=== PATIENT | male | born 1995 | race Caucasian/White ===

== ENCOUNTER 2019-02-20 13:17 | Inpatient (IN) | payer BC ==
[2019-02-20 14:09] LABS: Urine Appearance Clear; Urine Bilirubin Negative (Negative); Urine Blood Negative (Negative); Urine Color Yellow; Urine Glucose Negative (Negative); Urine Ketones Negative (Negative); Urine Nitrite Negative (Negative); Urine Protein Negative (Negative); Urine Specific Gravity 1.012 (1.010-1.030); Urine Urobilinogen Negative (Negative)
[2019-02-20] MEDS ORDERED: Nicotine* 4MG (FRUIT FLAVOR) GUM PO ONE (14:13)
[2019-02-20 14:27] LABS: ABS Basophils 0.1 10^3/ul (0-0.2); ABS Eosinophils 0.1 10^3/ul (0-0.6); ABS Lymphocytes 2.2 10^3/ul (1.0-4.8); ABS Monocytes 0.7 10^3/ul (0-0.8); ABS Neutrophils 5.6 10^3/ul (1.5-7.7); Eosinophil % 1.3 %; Hematocrit 41 % (42-52); Hemoglobin 14.4 g/dL (14.0-18.0); Lymphocyte % 25.3 %; Mean Corpuscular HGB Conc 35 g/dL (31-36); Mean Corpuscular Hemoglobin 31 pg (27-31); Mean Corpuscular Volume 91 fL (80-94); Nucleated Red Blood Cells % 0.1; Platelet Count 444 10^3/uL (150-450); Red Blood Count 4.58 10^6 /uL (4.18-5.48); Red Cell Distribution Width 13 % (10.5-15); White Blood Count 8.7 10^3/uL (3.5-10.8)
[2019-02-20 15:11] LABS: Urine Benzodiazepine Screen None Detected (None Detect); Urine Opiates Screen None Detected (None Detect)
[2019-02-20 15:15] LABS: TSH (Thyroid Stimulating Horm) 0.79 mcIU/mL (0.34-5.60)
[2019-02-20 15:26] LABS: Alcohol 38 mg/dL (<10); Salicylate < 2.50 mg/dL (<30)
[2019-02-20 15:32] LABS: ALT 23 U/L (7-52); AST 24 U/L (13-39); Albumin 4.8 g/dL (3.2-5.2); Albumin/Globulin Ratio 1.5 (1-3); Alkaline Phosphatase 77 U/L (34-104); Anion Gap 10 mmol/L (2-11); BUN/Creatinine Ratio 12.4 (8-20); Blood Urea Nitrogen 11 mg/dL (6-24); CO2 Carbon Dioxide 24 mmol/L (22-32); Calcium 9.6 mg/dL (8.6-10.3); Chloride 106 mmol/L (101-111); EGFR African American 130.6 (>60); EGFR Non-African American 107.9 (>60); Globulin 3.1 g/dL (2-4); Glucose 94 mg/dL (70-100); Potassium 4.1 mmol/L (3.5-5.0); Sodium 140 mmol/L (135-145); Total Protein 7.9 g/dL (6.4-8.9)
[2019-02-20 16:27] LABS: Acetaminophen < 15 mcg/mL
--- NOTE | 2019-02-20 16:36 | ED ---
Psychiatric Complaint - HPI Summary HPI Summary: This patient is a 23 year old M brought in by police to [facility] with a chief complaint per police of suicidal ideations. The police stated that at 0700 the patient had attached a gun to a chair and sent a picture of it to his girlfriend. The patient reports no suicidal or homicidal ideations, anxiety, or depression. The patient has symptoms of a headache. Per the police the patient has been uncooperative. The patient has a Hx of violence towards others but no other notable PMHx. The patients symptoms are alleviated and aggravated by nothing. The police say that the mom is cooperative but the dad is not. - History Of Current Complaint Chief Complaint: EDMentalHealth Time Seen by Provider: 02/20/19 13:38 Hx Obtained From: Patient, Other: - Police Onset/Duration: Sudden Onset - 0700 Timing: Hours - sine 0700 02/20/19 Aggravating Factor(s): Nothing Alleviating Factor(s): Nothing Has Suicidal: Denies: Thoughts Has Homicidal: Denies: Thoughts - Allergies/Home Medications Allergies/Adverse Reactions: Allergies Allergy/AdvReac Type Severity Reaction Status Date / Time bee venom protein (honey bee) Allergy Unknown Verified 02/20/19 13:25 Reaction Details Penicillins Allergy Unknown Verified 02/20/19 13:25 Reaction Details PMH/Surg Hx/FS Hx/Imm Hx Previously Healthy: No Endocrine/Hematology History: Denies: Hx Diabetes, Hx Thyroid Disease Cardiovascular History: Denies: Hx Congestive Heart Failure, Hx Deep Vein Thrombosis, Hx Hypertension , Hx Myocardial Infarction, Hx Pacemaker/ICD Respiratory History: Denies: Hx Asthma, Hx Chronic Obstructive Pulmonary Disease (COPD), Hx Lung Cancer, Hx Pneumonia, Hx Pulmonary Embolism GI History: Denies: Hx Gall Bladder Disease, Hx Gastrointestinal Bleed, Hx Ulcer, Hx Urosepsis History: Denies: Hx Kidney Stones, Hx Renal Disease Neurological History: Denies: Hx Dementia, Hx Migraine, Hx Seizures, Hx Transient Ischemic Attacks (TIA) Psychiatric History: Reports: Hx of Violent Episodes Against Others Denies: Hx Anxiety, Hx Eating Disorder, Hx Depression, Hx Schizophrenia, Hx Bipolar Disorder - Surgical History Surgery Procedure, Year, and Place: tonsills adenoids removed Infectious Disease History: No Infectious Disease History: Denies: History Other Infectious Disease, Traveled Outside the [place] in Last 30 Days - Family History Known Family History: Negative: Cardiac Disease, Hypertension, Diabetes - Social History Alcohol Use: Weekly Hx Substance Use: No Substance Use Type: Reports: None Hx Tobacco Use: Yes Smoking Status (MU): Heavy Every Day Tobacco Smoker Type: Cigarettes Amount Used/How Often: tin or 2 a day Review of Systems Positive: Headache Negative: Anxious, Depressed All Other Systems Reviewed And Are Negative: Yes Physical Exam - Summary Physical Exam Summary: Constitutional: Well-developed, Well-nourished, Alert. (-) Distressed Skin: Warm, Dry, hands are erythematous, track minaya evident on hands. HENT: Normocephalic; Atraumatic Eyes: Conjunctiva normal Neck: Musculoskeletal ROM normal neck. (-) JVD, (-) Stridor, (-) Tracheal deviation Cardio: Rhythm regular, rate normal, Heart sounds normal; Intact distal pulses; The pedal pulses are 2+ and symmetric. Radial pulses are 2+ and symmetric. (-) Murmur Pulmonary/Chest wall: Effort normal. (-) Respiratory distress, (-) Wheezes, (-) Rales Abd: Soft, (-) tenderness, (-) Distension, (-) Guarding, (-) Rebound Musculoskeletal: (-) Edema Lymph: (-) Cervical adenopathy Neuro: Alert, Oriented x3 Psych: Flat affect Triage Information Reviewed: Yes Vital Signs On Initial Exam: Initial Vitals Temp Pulse Resp BP Pulse Ox 99.3 F 111 16 127/88 97 02/20/19 13:19 02/20/19 13:19 02/20/19 13:19 02/20/19 13:19 02/20/19 13:19 Vital Signs Reviewed: Yes Diagnostics - Vital Signs Vital Signs Temp Pulse Resp BP Pulse Ox 02/20/19 15:48 99.7 F 97 18 133/51 99 02/20/19 13:19 99.3 F 111 16 127/88 97 - Laboratory Lab Results: Lab Results 02/20/19 02/20/19 02/20/19 Range/Units 13:35 13:35 14:17 WBC 8.7 (3.5-10.8) 10^3/uL RBC 4.58 (4.18-5.48) 10^6 /uL Hgb 14.4 (14.0-18.0) g/dL Hct 41 L (42-52) % MCV 91 (80-94) fL MCH 31 (27-31) pg MCHC 35 (31-36) g/dL RDW 13 (10.5-15) % Plt Count 444 (150-450) 10^3/uL MPV 6.0 L (7.4-10.4) fL Neut % (Auto) 64.9 % Lymph % (Auto) 25.3 % Furnas % (Auto) 7.8 % Eos % (Auto) 1.3 % Baso % (Auto) 0.7 % Absolute Neuts (auto) 5.6 (1.5-7.7) 10^3/ul Absolute Lymphs (auto) 2.2 (1.0-4.8) 10^3/ul Absolute Monos (auto) 0.7 (0-0.8) 10^3/ul Absolute Eos (auto) 0.1 (0-0.6) 10^3/ul Absolute Basos (auto) 0.1 (0-0.2) 10^3/ul Absolute Nucleated RBC 0.0 10^3/ul Nucleated RBC % 0.1 Sodium (135-145) mmol/L Potassium (3.5-5.0) mmol/L Chloride (101-111) mmol/L Carbon Dioxide (22-32) mmol/L Anion Gap (2-11) mmol/L BUN (6-24) mg/dL Creatinine (0.67-1.17) mg/dL Est GFR ( Amer) (>60) Est GFR (Non-Af Amer) (>60) BUN/Creatinine Ratio (8-20) Glucose (70-100) mg/dL Calcium (8.6-10.3) mg/dL Total Bilirubin (0.2-1.0) mg/dL AST (13-39) U/L ALT (7-52) U/L Alkaline Phosphatase (34-104) U/L Total Protein (6.4-8.9) g/dL Albumin (3.2-5.2) g/dL Globulin (2-4) g/dL Albumin/Globulin Ratio (1-3) TSH (0.34-5.60) mcIU/mL Urine Color Yellow Urine Appearance Clear Urine pH 5.0 (5-9) Ur Specific Wellington 1.012 (1.010-1.030) Urine Protein Negative (Negative) Urine Ketones Negative (Negative) Urine Blood Negative (Negative) Urine Nitrate Negative (Negative) Urine Bilirubin Negative (Negative) Urine Urobilinogen Negative (Negative) Ur Leukocyte Esterase Negative (Negative) Urine Glucose Negative (Negative) Salicylates (<30) mg/dL Urine Opiates Screen None detected (None Detect) Acetaminophen mcg/mL Ur Barbiturates Screen None detected (None Detect) Ur Phencyclidine Scrn None detected (None Detect) Ur Amphetamines Screen None detected (None Detect) U Benzodiazepines Scrn None detected (None Detect) Urine Cocaine Screen Presumptive positive A (None Detect) U Cannabinoids Screen None detected (None Detect) Serum Alcohol (<10) mg/dL 02/20/19 Range/Units 14:17 WBC (3.5-10.8) 10^3/uL RBC (4.18-5.48) 10^6 /uL Hgb (14.0-18.0) g/dL Hct (42-52) % MCV (80-94) fL MCH (27-31) pg MCHC (31-36) g/dL RDW (10.5-15) % Plt Count (150-450) 10^3/uL MPV (7.4-10.4) fL Neut % (Auto) % Lymph % (Auto) % Furnas % (Auto) % Eos % (Auto) % Baso % (Auto) % Absolute Neuts (auto) (1.5-7.7) 10^3/ul Absolute Lymphs (auto) (1.0-4.8) 10^3/ul Absolute Monos (auto) (0-0.8) 10^3/ul Absolute Eos (auto) (0-0.6) 10^3/ul Absolute Basos (auto) (0-0.2) 10^3/ul Absolute Nucleated RBC 10^3/ul Nucleated RBC % Sodium 140 (135-145) mmol/L Potassium 4.1 (3.5-5.0) mmol/L Chloride 106 (101-111) mmol/L Carbon Dioxide 24 (22-32) mmol/L Anion Gap 10 (2-11) mmol/L BUN 11 (6-24) mg/dL Creatinine 0.89 (0.67-1.17) mg/dL Est GFR ( Amer) 130.6 (>60) Est GFR (Non-Af Amer) 107.9 (>60) BUN/Creatinine Ratio 12.4 (8-20) Glucose 94 (70-100) mg/dL Calcium 9.6 (8.6-10.3) mg/dL Total Bilirubin 0.30 (0.2-1.0) mg/dL AST 24 (13-39) U/L ALT 23 (7-52) U/L Alkaline Phosphatase 77 (34-104) U/L Total Protein 7.9 (6.4-8.9) g/dL Albumin 4.8 (3.2-5.2) g/dL Globulin 3.1 (2-4) g/dL Albumin/Globulin Ratio 1.5 (1-3) TSH 0.79 (0.34-5.60) mcIU/mL Urine Color Urine Appearance Urine pH (5-9) Ur Specific Wellington (1.010-1.030) Urine Protein (Negative) Urine Ketones (Negative) Urine Blood (Negative) Urine Nitrate (Negative) Urine Bilirubin (Negative) Urine Urobilinogen (Negative) Ur Leukocyte Esterase (Negative) Urine Glucose (Negative) Salicylates < 2.50 (<30) mg/dL Urine Opiates Screen (None Detect) Acetaminophen < 15 mcg/mL Ur Barbiturates Screen (None Detect) Ur Phencyclidine Scrn (None Detect) Ur Amphetamines Screen (None Detect) U Benzodiazepines Scrn (None Detect) Urine Cocaine Screen (None Detect) U Cannabinoids Screen (None Detect) Serum Alcohol 38 H (<10) mg/dL Result Diagrams: 02/20/19 14:17 02/20/19 14:17 Lab Statement: Any lab studies that have been ordered have been reviewed, and results considered in the medical decision making process. - EKG 1439 Cardiac Rate: NL - 94 BPM EKG Rhythm: Sinus Rhythm - Normal sinus rhythm at 74 bpm, normal FL, normal QRS , normal QTc, normal axis, Elevated ST in leads V1, V2, V3, normal T-waves, LVH , nonspecific EKG. Summary of EKG Findings: Normal sinus rhythm at 94 bpm, normal FL, normal QRS, normal QTc, normal axis, elevated ST on V1-V3, normal T-waves, nonspecific EKG, LVH. Course/Dx - Course Course Of Treatment: This patient is a 23 year old M brought in by police to [facility] with a chief complaint per police of suicidal ideations. The patient had abnormal values in Hct at 41, MPV at 6.0, and was positive in a urine cocaine screen, and had a serum alcohol level of 38. This patient also recieved an EKG showing normal sinus rhythm at 94 bpm, normal FL, normal QRS, normal QTc, normal axis, elevated ST on V1-V3, normal T-waves, nonspecific EKG, LVH. Patient was cleared for [facility]HE at 1634. Patient was admitted per Dr. Mclaughlin, psychiatrist at 1806. Pateint was diagnosed as unspecified depression. - Differential Dx/Clinical Impression Differential Diagnosis/HQI/PQRI: Positive: Depression Provider Diagnosis: Depressive disorder - Physician Notifications Discussed Care Of Patient With: Jo Mclaughlin Time Discussed With Above Provider: 18:06 Instructed by Provider To: Admit As Inpatient Discharge - Sign-Out/Discharge Documenting (check all that apply): Patient Departure - admit Patient Received Moderate/Deep Sedation with Procedure: No - Discharge Plan Condition: Stable Disposition: ADMITTED TO [facility] Referrals: Edi Wellington DO [Primary Care Provider] - - Billing Disposition and Condition Condition: STABLE Disposition: Admitted to [facility] - Attestation Statements Document Initiated by Maurice: Yes Documenting Scribe: Abdias León Provider For Whom Maurice is Documenting (Include Credential): Ketty Osorio MD Scribe Attestation: Abdias Suarez, scribed for Ketty Herrera MD on 02/20/19 at 1903. Scribe Documentation Reviewed: Yes Provider Attestation: The documentation as recorded by the Abdias barahona accurately reflects the service I personally performed and the decisions made by me, Ketty Herrera MD Status of Scribe Document: Viewed
[2019-02-20] MEDS ORDERED: Acetaminophen TAB* 325 MG PO PRN (21:13)
[2019-02-20] MEDS ORDERED: Al Hydrox/Mg Hydrox/Simet LIQ* 30 ML UDC PO PRN (21:13)
[2019-02-20] MEDS: Nicotine* 2MG (FRUIT FLAVOR) GUM PO PRN (22:17)
[2019-02-21] MEDS: Nicotine* 2MG (FRUIT FLAVOR) GUM PO PRN ×6 (07:29→22:10)
[2019-02-21] MEDS: Nicotine PATCH 21 MG/24 HR* PATCH TRANSDERM SCH (07:29)
[2019-02-21 08:28] LABS: HDL Cholesterol 65.8 mg/dL
[2019-02-21] MEDS: Vitamin THERAPEUTIC TAB PO SCH (09:48)
--- NOTE | 2019-02-21 10:51 | HP ---
H&P (Free Text) History and Physical: Justification for admission: Immediate Safety. CC " I woke up" The patient was brought to [facility] by police after a incident where his girlfriend Yin called the police for concern of suicide. Per police commissioner he got into a argument with his girlfriend yesterday morning and did not call her back. He began drinking and sending her messages about suicide. She called the police and they went to his residence for a welfare check and discovered he shot holes in his barn and tied a rope to a chair and his rifle. They did not have concerns for homicidal ideation or intent. He has access to firearms. He denied stockpiles of medications. According to the patient " nothing happened, I woke up and the police took me to the hospital." The patient denied homicidal ideation intent or plan. The patient denied auditory and/ or visual hallucinations. Collateral from his father included that he was hanging a gun in the barn planing to shoot himself and sent a picture and message about suicide to his girlfriend. His father remarked "he will try and talk himself out of everything". His father stated this is the first time he has mentioned suicide. His father has locked all guns in a safe and out of his access. MDD Denied feeling depressed. Denied having diminished interests which were found to be enjoyable in the past. Denied having crying spells , feeling empty inside , feelings of hopelessness , and worthlessness. Denied unintentional weight loss and appetite. Denied interruption of sleep , or feeling tired throughout the day. Denied loss of energy or lack of motivation to complete tasks. Denied overwhelming feelings of guilt or decreased concentration. Denied recurrent thoughts of . Denied thoughts that they would be better off . Anxiety Denied having symptoms of anxiety such as having times where heart feels that it is beating out of chest , sweaty palms, or shallow breathing. Denied having uncomfortable or intrusive thoughts. Denied feeling restless, high strung, or worrying too much most of the time. Bipolar Denied symptoms of margo such as having many ideas at once. Denied increased talkativeness where no one can interrupt. Denied feeling irritable most of the time while having an persistent abundance of energy most of the day without the use of energy drinks, stimulants, or recreational drug use. Denied an increase in intensity in goal directed activities. Denied having the decreased need to sleep for days , having prolonged elevated heighted mood , or feeling on top of the world. Denied impulsive risky sexual encounters. Denied spending money recklessly , going on spending sprees wiping out savings. Denied impulsively traveling out of town or country, having super bacon, and unrealistic wealth or fame. Psychosis Does not endorse hearing things that other people do not hear or seeing things other people do not see. Denied feeling that TV is making references. Denied feeling that people are spying , following , or reading their thoughts. Phobias: Patient denied having excessive fear of a particular thing or situation. Eating disorders: Patient denied having excessive eating habits or feelings of guilt after eating. Denied repeated episodes of self induced vomiting after eating. PTSD Denied flashbacks, nightmares and avoidance of a prior traumatic event. PAST PSYCHIATRIC HISTORY: Prior Diagnosis : Denied having prior psychiatric history. History of past Psychiatric Hospitalizations: No prior psychiatric admission. History of past suicide/homicide attempts : Denied past suicide attempts. Denied past homicidal incidents. Outpatient follow-up: None Medications: No Past trials of medications Guardianship: None. FAMILY HISTORY: - Suicide: Denied family history of suicide. - Mental illness: Denied a history of mental health in immediate family members. - Substance abuse: Father alcohol abuse SUBSTANCE ABUSE HISTORY: Denied recreational use of prescription pills. - EtOH: Reported drinking a couple of beers, once or twice a week. Denied blackout seizures or DTs, 2 DWIs. - Tobacco: Smokes 1/4 ppd and uses chewing tobacco daily. - Cannabis: Denied using recently or in the past. - Heroin: Denied using recently or in the past. - Cocaine: Denied using recently or in the past however UDS shows + result - Substance abuse treatment: Currently in court mandated alcohol program SOCIAL HISTORY: - Currently lives in [place], [place] with his father. 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 He has never been , his girlfriend is currently with his only child. - Legal history: On probation for 2 DWIs - service history: Denied PAST MEDICAL HISTORY: Denied heart disease, diabetes, cancer and/ or other medical conditions. - Allergies: Penicillin ,Bee stings. Physical Exam: Please see ED note Mental Status Exam on Admission APPEARANCE : 23 year old male who appears stated age. Patient appears disheveled BEHAVIOR: Cooperative , calm EYE CONTACT: Fair PSYCHOMOTOR ACTIVITY: No psychomotor agitation or retardation. MOVEMENTS: No abnormal movements observed. SPEECH : Normal rate, rhythm, volume and tone. MOOD : " Fine" AFFECT : Type anxious, Range is restricted shallow depth Mood Incongruent THOUGHT PROCESS: Formulated and organized in a logical, linear goal directed manner. No flight of ideas, neologism (made up words) , perseveration , tangential , loose associations , or circumstantiality. THOUGHT CONTENT: no delusions, obsessions, phobias or preoccupations. PERCEPTION: No current auditory or visual hallucinations. Doesnt appear to be responding to internal cues. No evidence of depersonalization , de-realization, or illusions SUICIDALITY Recent suicidal ideation, with plan per history. HOMICIDALITY Denied homicidal ideation, intent or plan. Insight/judgment: Poor insight and judgment ORIENTATION: Oriented to self, location, and time. Diagnosis on Admission: Unspecified depressive Disorder, alcohol use disorder. Assessment: 23 year old male with no prior psychiatric history came to the hospital by police after concerns for suicide. Plan #Admit to [facility], Q15 minute observation. Start regular diet. Encourage participation in activities on the milieu. #Patient evaluated in ED and was determined by the emergency room Physician to be medically fit for admission to the [facility]. # Justification for Admission: For immediate safety per outlined in the [facility] Mental Hygiene Code. # The patient requires inpatient admission at this time to assure safety, receive treatment and work toward stabilization. # Labs ordered: CBC, CMP, UDS, TSH, HBA1c, TSH, Toxicology screen, Urine analysis, and lipid profile. # Signed release for his girlfriend and father signed. Girlfriend Yin [phone] # Collaboration with Social Work to assist with disposition and after care. # [place] [facility] Substance Abuse resources offered. Tobacco use disorder: nicotine supplement offered and put in place. #Goals before discharge include: Improve self awareness
[2019-02-21] MEDS: Nicotine Patch Removal NOTE PATCH OFF SCH (21:31)
[2019-02-22] MEDS: Nicotine* 2MG (FRUIT FLAVOR) GUM PO PRN ×6 (07:29→21:45)
[2019-02-22] MEDS: Nicotine PATCH 21 MG/24 HR* PATCH TRANSDERM SCH (07:30)
[2019-02-22] MEDS: Vitamin THERAPEUTIC TAB PO SCH (07:31)
--- NOTE | 2019-02-22 11:04 | PN ---
Subjective - Subjective Date of Service: 02/22/19 Service Type: 69530 Hosp care 35 min high complexity Subjective: Nursing Report: Patient was visible on unit, no chemical restraints or PRNs. Slept overnight without incident. Attended some of the groups CC: "Fine Patient was seen and evaluated in the common room. The patient reported he feels safe on the unit and is interacting with peers. He acknowledged that he set up his rifle to kill himself and then decided not to and went to bed and woke up to the police at the door. He talked about how alcohol influences him to do things he wouldn't do if he wasnt using alcohol. He spoke of the stress of having a daughter on the way with bills. His mother called the unit overnight. He does not wish to not provide a release of information for staff to talk with her. He rather staff speak to his father and girlfriend. He reported having an adequate appetite and sleep. Per nursing no behavioral issues or overnight events reported. He denied being depressed or anxious and refused to take medications. His father was called and confirmed that Gerri firearms were taken by the real estate closer and his own are in a locked safe. He said that he never noticed signs of depression, anxiety or mental illness in the past. He did say that he is concerned about his addiction to alcohol. Objective - General Observations Appearance: Unkempt Appears Stated Age: Yes Stature: Thin Posture: WNL Eye Contact: Average Behavior/Activity: WNL - Interaction Observations Attitude Towards Examiner: Evasive Stated Mood: Anxious Affect: Restricted Speech Pattern/Tone: Clear Thought Process: Coherent Perception: WNL Thought Content: WNL Hallucination Type: None Delusion Type: None - Cognitive Function Orientation: A&O x 4 Level of Consciousness: Awake - Group Participation Participates in Group Activities: No Assessment - Assessment Merits Inpatient Hospitalization: For Immediate Safety Clinical Impression: 23 year old male brought in by police after suicidal attempt Plan - Plan Treatment Plan: Name: GERRI IGLESIAS Birthdate: 1995 [id number] # Q30 minute observation. # The patient requires inpatient admission at this time to assure safety, receive treatment and work toward stabilization. # Signed release for his girlfriend and father signed. Girlfriend Yin Fathers # [phone]. # Collaboration with Social Work to assist with disposition and after care. # [place] [facility] # Alcohol cessation treatments offered. Substance Abuse resources offered. Tobacco use disorder: nicotine supplement offered and put in place. #Goals before discharge include: Improve self awareness Continued Medication Management: Continue Outpt Medication Medications: Current Medications Acetaminophen (Tylenol Tab*) 650 mg PO Q4H PRN PRN Reason: PAIN or TEMP > 101 F Al Hydrox/Mg Hydrox/Simethicone (Maalox Plus*) 30 ml PO Q4H PRN PRN Reason: INDIGESTION Multivitamins (Theragran Tab*) 1 tab PO DAILY [facility] Last Admin: 02/22/19 07:31 Dose: Not Given Nicotine (Nicotine Patch 21 Mg/24 Hr*) 1 patch TRANSDERM QAM [facility] Last Admin: 02/22/19 07:30 Dose: Not Given Nicotine Polacrilex (Nicotine Gum*) 2 mg PO Q2H PRN PRN Reason: CRAVINGS Last Admin: 02/22/19 10:03 Dose: 2 mg Pharmacy Profile Note (Nicotine Patch Removal Note*) 1 note PATCH OFF 2100 [facility] Last Admin: 02/21/19 21:31 Dose: Not Given - Discharge Plan Discharge Plan: Inpatient Hospitalization
--- NOTE | 2019-02-22 11:23 | PN ---
BSU: Group Therapy Note - Service Type Service Type: 73483 Group Psychotherapy - Cognitive Behavioral Group Therapy ( CBT):Patient attended CBT programming this morning and presented with flat affect that did not vary with discussion. Although responsive to direct prompts to respond to questions, patient did not engage in spontaneous conversation.
[2019-02-22] MEDS: Nicotine Patch Removal NOTE PATCH OFF SCH (21:43)
[2019-02-23] MEDS: Nicotine* 2MG (FRUIT FLAVOR) GUM PO PRN ×4 (07:42→20:36)
[2019-02-23 08:07] VITALS: BP 132/75
[2019-02-23] MEDS: Nicotine PATCH 21 MG/24 HR* PATCH TRANSDERM SCH ×2 (09:20→09:21)
[2019-02-23] MEDS: Vitamin THERAPEUTIC TAB PO SCH (09:20)
[2019-02-23] MEDS: Nicotine Patch Removal NOTE PATCH OFF SCH (21:52)
[2019-02-24] MEDS: Vitamin THERAPEUTIC TAB PO SCH (07:51)
[2019-02-24] MEDS: Nicotine PATCH 21 MG/24 HR* PATCH TRANSDERM SCH (08:53)
[2019-02-24] MEDS: Nicotine* 2MG (FRUIT FLAVOR) GUM PO PRN ×5 (08:54→19:33)
--- NOTE | 2019-02-24 15:29 | PN ---
Subjective - Subjective Date of Service: 02/24/19 Service Type: 25172 Hosp care 15 min low complexity Subjective: Gerri reports concern about how to pay bills, having lost his job while admitted here. He wants discharge. He declines any med change and states he has no need for a doctor's order. He denies thoughts to harm himself or others , He reports feeling alcohol played a role in his near suicide attempt. He understands the troopers took the rifle. He has no physical complaints. His mood is "bored." He denies AH/VH/PI/SI/HI. Objective - General Observations Appearance: Neat Appears Stated Age: Yes Stature: Thin Posture: WNL Eye Contact: Average Behavior/Activity: WNL - Interaction Observations Attitude Towards Examiner: Cooperative Stated Mood: Dysphoric - - "bored" Affect: Full Speech Pattern/Tone: Clear, Appropriate, Normal Volume Thought Process: Coherent Perception: WNL Thought Content: WNL Hallucination Type: None Delusion Type: None - Cognitive Function Orientation: A&O x 4 Level of Consciousness: Awake, Alert, Appropriate Cognition: WNL Estimated Intelligence: Normal Ability to Make Reasonable Decisions: Mildly Impaired - Medication Compliance Cooperative with Inpatient Medication Regimen: Yes - Group Participation Participates in Group Activities: No Assessment - Assessment Merits Inpatient Hospitalization: For Immediate Safety, For Stabilization, For Discharge Planning Clinical Impression: 23 year old male brought in by police after suicidal attempt Plan - Plan Treatment Plan: Name: GERRI IGLESIAS Birthdate: 1995 [id number] # Q30 minute observation. # The patient requires inpatient admission at this time to assure safety, receive treatment and work toward stabilization. # Signed release for his girlfriend and father signed. Girlfriend Yin Fathers # [phone]. # Collaboration with Social Work to assist with disposition and after care. # [place] [facility] # Alcohol cessation treatments offered. Substance Abuse resources offered. Tobacco use disorder: nicotine supplement offered and put in place. #Goals before discharge include: Improve self awareness Medications: Current Medications Acetaminophen (Tylenol Tab*) 650 mg PO Q4H PRN PRN Reason: PAIN or TEMP > 101 F Al Hydrox/Mg Hydrox/Simethicone (Maalox Plus*) 30 ml PO Q4H PRN PRN Reason: INDIGESTION Multivitamins (Theragran Tab*) 1 tab PO DAILY [facility] Last Admin: 02/24/19 07:51 Dose: Not Given Nicotine (Nicotine Patch 21 Mg/24 Hr*) 1 patch TRANSDERM QAM [facility] Last Admin: 02/24/19 08:53 Dose: 1 patch Nicotine Polacrilex (Nicotine Gum*) 2 mg PO Q2H PRN PRN Reason: CRAVINGS Last Admin: 02/24/19 14:00 Dose: 2 mg Pharmacy Profile Note (Nicotine Patch Removal Note*) 1 note PATCH OFF 2100 [facility] Last Admin: 02/23/19 21:52 Dose: 1 note - Discharge Plan Discharge Plan: Outpatient Follow Up
[2019-02-24] MEDS: Nicotine Patch Removal NOTE PATCH OFF SCH (22:21)
[2019-02-25] MEDS: Nicotine* 2MG (FRUIT FLAVOR) GUM PO PRN ×2 (07:28→09:32)
--- NOTE | 2019-02-25 08:56 | DS ---
Subjective - Subjective Service Types: [address] [facility] Day Mgmt complex over 30 min Discharge Date: 02/25/19 Subjective: CC: I am good Patient reported that he has no plans for suicide and plans to live with his girlfriend. He refused treatment for cessation of alcohol use. His mother plans to pick him up. He slept well overnight and had no incidents over the weekend. He had adequate appetite. Justification for admission: Immediate Safety. CC " I woke up" The patient was brought to [facility] by police after a incident where his girlfriend Yin called the police for concern of suicide. [place] police he got into a argument with his girlfriend yesterday morning and did not call her back. He began drinking and sending her messages about suicide. She called the police and they went to his residence for a welfare check and discovered he shot holes in his barn and tied a rope to a chair and his rifle. They did not have concerns for homicidal ideation or intent. He has access to firearms. He denied stockpiles of medications. According to the patient " nothing happened, I woke up and the police took me to the hospital." The patient denied homicidal ideation intent or plan. The patient denied auditory and/ or visual hallucinations. Collateral from his father included that he was hanging a gun in the barn planing to shoot himself and sent a picture and message about suicide to his girlfriend. His father remarked "he will try and talk himself out of everything". His father stated this is the first time he has mentioned suicide. His father has locked all guns in a safe and out of his access. MDD Denied feeling depressed. Denied having diminished interests which were found to be enjoyable in the past. Denied having crying spells , feeling empty inside , feelings of hopelessness , and worthlessness. Denied unintentional weight loss and appetite. Denied interruption of sleep , or feeling tired throughout the day. Denied loss of energy or lack of motivation to complete tasks. Denied overwhelming feelings of guilt or decreased concentration. Denied recurrent thoughts of . Denied thoughts that they would be better off . Anxiety Denied having symptoms of anxiety such as having times where heart feels that it is beating out of chest , sweaty palms, or shallow breathing. Denied having uncomfortable or intrusive thoughts. Denied feeling restless, high strung, or worrying too much most of the time. Bipolar Denied symptoms of margo such as having many ideas at once. Denied increased talkativeness where no one can interrupt. Denied feeling irritable most of the time while having an persistent abundance of energy most of the day without the use of energy drinks, stimulants, or recreational drug use. Denied an increase in intensity in goal directed activities. Denied having the decreased need to sleep for days , having prolonged elevated heighted mood , or feeling on top of the world. Denied impulsive risky sexual encounters. Denied spending money recklessly , going on spending sprees wiping out savings. Denied impulsively traveling out of town or country, having super bacon, and unrealistic wealth or fame. Psychosis Does not endorse hearing things that other people do not hear or seeing things other people do not see. Denied feeling that TV is making references. Denied feeling that people are spying , following , or reading their thoughts. Phobias: Patient denied having excessive fear of a particular thing or situation. Eating disorders: Patient denied having excessive eating habits or feelings of guilt after eating. Denied repeated episodes of self induced vomiting after eating. PTSD Denied flashbacks, nightmares and avoidance of a prior traumatic event. PAST PSYCHIATRIC HISTORY: Prior Diagnosis : Denied having prior psychiatric history. History of past Psychiatric Hospitalizations: No prior psychiatric admission. History of past suicide/homicide attempts : Denied past suicide attempts. Denied past homicidal incidents. Outpatient follow-up: None Medications: No Past trials of medications Guardianship: None. FAMILY HISTORY: - Suicide: Denied family history of suicide. - Mental illness: Denied a history of mental health in immediate family members. - Substance abuse: Father alcohol abuse SUBSTANCE ABUSE HISTORY: Denied recreational use of prescription pills. - EtOH: Reported drinking a couple of beers, once or twice a week. Denied blackout seizures or DTs, 2 DWIs. - Tobacco: Smokes 1/4 ppd and uses chewing tobacco daily. - Cannabis: Denied using recently or in the past. - Heroin: Denied using recently or in the past. - Cocaine: Denied using recently or in the past however UDS shows + result - Substance abuse treatment: Currently in court mandated alcohol program SOCIAL HISTORY: - Currently lives in [place], [place] with his father. 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 He has never been , his girlfriend is currently with his only child. - Legal history: On probation for 2 DWIs - service history: Denied PAST MEDICAL HISTORY: Denied heart disease, diabetes, cancer and/ or other medical conditions. - Allergies: Penicillin ,Bee stings. Physical Exam: Please see ED note Mental Status Exam on Admission APPEARANCE : 23 year old male who appears stated age. Patient appears disheveled BEHAVIOR: Cooperative , calm EYE CONTACT: Fair PSYCHOMOTOR ACTIVITY: No psychomotor agitation or retardation. MOVEMENTS: No abnormal movements observed. SPEECH : Normal rate, rhythm, volume and tone. MOOD : " Fine" AFFECT : Type anxious, Range is restricted shallow depth Mood Incongruent THOUGHT PROCESS: Formulated and organized in a logical, linear goal directed manner. No flight of ideas, neologism (made up words) , perseveration , tangential , loose associations , or circumstantiality. THOUGHT CONTENT: no delusions, obsessions, phobias or preoccupations. PERCEPTION: No current auditory or visual hallucinations. Doesnt appear to be responding to internal cues. No evidence of depersonalization , de-realization, or illusions SUICIDALITY Recent suicidal ideation, with plan per history. HOMICIDALITY Denied homicidal ideation, intent or plan. Insight/judgment: Poor insight and judgment ORIENTATION: Oriented to self, location, and time. Diagnosis on Admission: Unspecified depressive Disorder, alcohol use disorder. Diagnosis on Discharge:Adjustment Disorder, Tobacco Use Disorder, Alcohol use disorder. Condition at the time of discharge: At the time of discharge patient showed improvement of sleep and appetite. The patient was not a danger to self or others. The patient denied suicidal ideation , intent or plan. The patient denied homicidal targets, ideation, intent or plan. This patient participated in psychosocial rehabilitation and gained some insight into problems. The patient gained insight into mental illness, triggers, and treatment. Therapy Resources were offered to the patient. The patient plans to attend follow up care with the follow up arrangements that were discussed and put in place. Patient was asked to keep appointments as scheduled, have routine follow up care with their primary care physician and refrain from any use of alcohol or drugs. Objective - General Observations Appearance: Unkempt Appears Stated Age: Yes Stature: WNL, Thin Posture: WNL Eye Contact: Average Behavior/Activity: WNL - Interaction Observations Attitude Towards Examiner: Cooperative Stated Mood: Euthymic Affect: Blunted Speech Pattern/Tone: Clear Thought Process: Coherent Perception: WNL Thought Content: WNL Hallucination Type: None Delusion Type: None - Cognitive Function Orientation: A&O x 4 Level of Consciousness: Awake Estimated Intelligence: Normal - Medication Compliance Cooperative with Inpatient Medication Regimen: No - Group Participation Participates in Group Activities: Yes Treatment Course & Assessment Clinical Course & Impression: Hospital course part A: 23 year old male brought in by police after becoming intoxicated and setting up a rifle to shoot himself Hospital course part B: Labs ordered included CBC, CMP, UDS, TSH, HBA1c, TSH, Toxicology screen, Urine analysis, and lipid profile. Labs were reviewed and did not require the need for further evaluation. Vital signs were monitored during the course of admission The patient was admitted to the adult behavioral unit and placed on 15 minute check for safety. At a later time the patient was on Q30 minute observation. With those limits being extended , there were no occurrence of behavioral incidents. The patient did well on the unit and went to groups. Interacted with peers had adequate sleep and regular appetite. Group therapy and services were offered. The risks, benefits, and alternative treatment options were discussed as well as of the risks of refusing treatment. Treatment associated risks discussed. After this discussion and made an acknowledgement of this understanding. Follow up care appointments were put in place for follow up care. Improvements in patient from the time of admission include: Improved affect, sleep and decrease in anxiety. No longer suicidal and no longer having feelings of hopelessness. The patient expressed readiness for discharge home. The patient presents with a broader range of affect, and the absence of depressed mood, delusions, perceptual disturbances. The patient denied suicidal and or homicidal ideation intent or plan. Overall, the patient responded well to inpatient treatment as evidenced by their report of strengthening of coping mechanisms, reduced distress, and more positive outlook on circumstances. Of note there was an improvement of recognizing how emotional state can effect mood and behavior. Patients main stressors include finances, recent legal charges for 2 DWIs as well as expecting a new born. Safety precautions were put in place which included involving the patient and their family to closely monitor for changes in mental state. In addition, implementing follow up care, screening for the need to remove/securing firearms , weapons and stockpile of medications. Patient/ family instructed to immediately call 911 should any safety concerns arise. The patient was advised of the 24 hour / 7 days a week availability of the emergency room and to call 911 in the event of an emergency such as being suicidal and/ or homicidal. The patient was informed of the contact information for [facility], Suicide Prevention and Crisis Services, National Suicide Prevention Lifeline, [facility], Alcoholics Anonymous, and [facility]. Patient refused to take medications . Alcohol treatment was offered and he declined. He was informed of AA. Substance abuse resources were offered and he declined and stated that the court has already makes him participate in a mandatory alcohol and drug treatment program. Nicotine replacement treatment was put in place and given upon discharge. He refused smoking cessation resources. Family was contacted and concerned about behavioral changes when he consumes alcohol. The confirmed that firearms were taken by the police department and all firearms were out of access and locked in a safe. [place] Safe ACT was completed. He allowed collateral from his girlfriend and his father but not for his mother. They were informed of warning signs and asked to call 911 or bring him to the ED if there is concern for suicide and or homicide. At first the patient denied everything in the police report and later came to terms about his reasons for hospitalization. Patient will be discharged to his home to live with father and later plans to live with girlfriend. He was picked up by his mother Follow up appointment at [facility] at 03/01/19 1030am and with PCP. Patient informed of follow up appointment times. See more details for follow of care in discharge plan. Risk factors: , male , single, recent suicide attempt, alcohol and substance abuse. Protective factors: Currently no suicidal ideation, intent or plan. No history of service. Currently no feelings of hopelessness, doesnt have multiple medical conditions, no family history of suicide, no longer has access to firearms. Doesnt have command hallucinations and or psychotic features at this time. Not a anniversary of a loss of a loved one. No changes in relationship status, housing, job, or school. Currently future orientated. Merits Inpatient Hospitalization: No Clear for Discharge: Adequate Clinical Respons Discharge Planning - Discharge Planning Discharge Plan: Outpatient Follow Up Outpatient Program: [facility] Recommendations for Continuing Care: Substance Abuse Counseling Medications: Current Medications Acetaminophen (Tylenol Tab*) 650 mg PO Q4H PRN PRN Reason: PAIN or TEMP > 101 F Al Hydrox/Mg Hydrox/Simethicone (Maalox Plus*) 30 ml PO Q4H PRN PRN Reason: INDIGESTION Multivitamins (Theragran Tab*) 1 tab PO DAILY [facility] Last Admin: 02/24/19 07:51 Dose: Not Given Nicotine (Nicotine Patch 21 Mg/24 Hr*) 1 patch TRANSDERM QAM [facility] Last Admin: 02/24/19 08:53 Dose: 1 patch Nicotine Polacrilex (Nicotine Gum*) 2 mg PO Q2H PRN PRN Reason: CRAVINGS Last Admin: 02/25/19 07:28 Dose: 2 mg Pharmacy Profile Note (Nicotine Patch Removal Note*) 1 note PATCH OFF [address] [facility] Last Admin: 02/24/19 22:21 Dose: 1 note Discharge Planning: Prescriptions provided for discharge [] Yes [x] No Follow up care details as per social work arrangements. Patient response to discharge plan: [x] eager for discharge [] agreeable with discharge plan [] ambivalent about discharge [] disagrees with discharge today
[2019-02-25] MEDS: Nicotine PATCH 21 MG/24 HR* PATCH TRANSDERM SCH (09:32)
[2019-02-25] MEDS: Vitamin THERAPEUTIC TAB PO SCH (09:34)
== END 2019-02-25 12:05 | disposition home or self-care (01) | DRG 755 ==
LOC: ED 13:17 → BSU 19:23
PROVIDERS: ADMIT Psychiatry & Neurology Psychiatry; ATTEND Psychiatry & Neurology Psychiatry
DX: F43.20 Adjustment disorder, unspecified (principal); R45.851 Suicidal ideations; F17.210 Nicotine dependence, cigarettes, uncomplicated; F17.220 Nicotine dependence, chewing tobacco, uncomplicated; F10.10 Alcohol abuse, uncomplicated; Y90.1 Blood alcohol level of 20-39 mg/100 ml; Z81.1 Family history of alcohol abuse and dependence; Z88.0 Allergy status to penicillin; Z91.030 Bee allergy status
CPT/HCPCS: 36415; 80053; 80061; 80307; 80320; 80329; 81003; 83036; 84443; 85025; 90853; 93005; 99222; 99231; 99233; 99238; 99284; A9270-GY; G0480